=== PATIENT | male | born 1965 | race African-American/Black ===

== ENCOUNTER 2019-02-14 01:28 | Emergency (ER) | payer SELFPAY ==
[2019-02-14] MEDS ORDERED: Meclizine HCl 25 MG TAB ONE (02:56)
[2019-02-14] MEDS ORDERED: Enoxaparin Sodium 100 MG/ML SYRINGE ONE (02:56)
[2019-02-14 03:13] LABS: #Eosinphils 0.3 thou/uL (0.0-0.7); #Lymphocytes 2.7 thou/uL (1.20-3.40); #Monocytes 0.7 thou/uL (0.11-0.59); %Basophils 0.3 % (0.0-1.0); %Eosinophils 3.8 % (0.0-10.0); %Lymphocytes 40.4 % (21.0-51.0); %Neutrophils 45.5 % (42.0-75.0); Mean Corpuscular HGB CONC 34.1 g/dL (32.0-36.0); Mean Corpuscular Hemoglobin 34.1 pg (27.0-31.0); Mean Corpuscular Volume 99.8 fL (78.0-98.0); Mean Platelet Volume 9.5 fL (7.4-10.4); Platelet Count 133 thou/uL (130-400); RBC Distribution Width 13.1 % (11.5-14.5); White Blood Cell (WBC) Count 6.6 thou/uL (4.8-10.8)
[2019-02-14 03:58] LABS: ALT (SGPT) 21 U/L (8-55); AST (SGOT) 22 U/L (5-34); Albumin 4.1 g/dL (3.5-5.0); Alkaline Phosphatase 81 U/L (40-150); Anion Gap 13 mmol/L (10-20); BUN (Urea Nitrogen) 15 mg/dL (8.4-25.7); Bilirubin, Total 0.3 mg/dL (0.2-1.2); Calc. Creatinine Clearance 0 mL/min (70-130); Calcium 9.5 mg/dL (7.8-10.44); Carbon Dioxide 22 mmol/L (22-29); Chloride 106 mmol/L (98-107); Estimated GFR-MDRD Greater than 90; Globulin 3.2 g/dL (2.4-3.5); Glucose 93 mg/dL (70-105); Potassium 4.2 mmol/L (3.5-5.1); Protein, Total 7.3 g/dL (6.0-8.3); Sodium 137 mmol/L (136-145)
--- NOTE | 2019-02-14 08:48 | CT ---
PRELIMINARY REPORT/[facility]/EMERGENCY AFTER HOURS PROCEDURE: EXAM: CT Head Without Contrast EXAM DATE/TIME: 02/14/2019 2:53 AM CLINICAL HISTORY: 54 years old, male; Patient HX: 54 y/o m presents to ED C/O intermittent dizziness that began approx 3 days ago. Denies speech changes, unilateral changes in strength or sensation, vision changes, gait changes TECHNIQUE: Imaging protocol: Computed tomography of the head without contrast. COMPARISON: No relevant prior studies available. FINDINGS: Brain: Unremarkable. No hemorrhage. No significant white matter disease. No edema. Ventricles: Unremarkable. Bones/joints: No acute fracture. Sinuses: Unremarkable. Mastoid air cells: Unremarkable. Soft tissues: Unremarkable. IMPRESSION: No evidence of acute intracranial abnormality. Thank you for allowing us to participate in the care of your patient. Dictated and Authenticated by: Laron Muse MD 02/14/2019 3:34 AM Central Time ([place] & [place]) FINAL REPORT CT BRAIN WITHOUT CONTRAST: COMPARISON: 11/09/2015 FINDINGS/IMPRESSION: I agree with the findings and impression given in the preliminary report per [facility] physician. No evidence of acute intracranial abnormality. POS: ANNA
--- NOTE | 2019-02-18 03:16 | EKG ---
Test Reason : Blood Pressure : / mmHG Vent. Rate : 052 BPM Atrial Rate : 052 BPM P-R Int : 132 ms QRS Dur : 094 ms QT Int : 416 ms P-R-T Axes : 053 015 012 degrees QTc Int : [address] elevation, consider early repolarization, pericarditis, or injury Abnormal ECG Confirmed by SARAH CAMPOS DO ([id number]), makeup editor OSWALDO MITCHELL ([id number]) on 02/18/2019 3:15:15 AM Referred By: Confirmed By:SARAH CAMPOS DO
== END 2019-02-14 04:35 | disposition home or self-care (01) ==
LOC: ERS 01:28
DX: R42 Dizziness and giddiness (principal); I10 Essential (primary) hypertension; F17.210 Nicotine dependence, cigarettes, uncomplicated; Z91.14 Patient's other noncompliance with medication regimen
CPT/HCPCS: 36415; 70450; 80053; 85025; 93005; J1650; J8597

== ENCOUNTER 2019-03-13 08:42 | Emergency (ER) | payer SELFPAY ==
--- NOTE | 2019-03-13 10:45 | RAD ---
EXAM: XR Lumbar Spine 2 Or 3 View PROVIDED CLINICAL HISTORY: Low back pain for 2 to 3 days COMPARISON: None FINDINGS: There are 5 nonrib-bearing lumbar-type vertebral bodies. Scattered osteophytes are seen in lower thor acic as well as involving the lower lumbar spine. The vertebral body heights are within normal limits. No fracture or subluxation is seen involving the lumbar spine. IMPRESSION: Degenerative changes in the lumbar spine without acute osseous abnormality seen.
[2019-03-13] MEDS ORDERED: Diazepam 5 MG TAB ONE (10:47)
[2019-03-13] MEDS ORDERED: Ketorolac Tromethamine 30 MG/ML VIAL ONE ×2 (10:47→10:50)
--- NOTE | 2019-03-13 10:48 | RAD ---
EXAM: XR Thoracic Spine 1 View PROVIDED CLINICAL HISTORY: Lower back pain for 2 to 3 days. COMPARISON: None FINDINGS: Lateral view was not obtained. There are osteophytes seen in the lower thoracic and upper lumbar spin e. No definite vertebral body height loss is seen. IMPRESSION: Limited exam as only a single AP projection is provided. There are degenerative changes in the lower thoracic spine.
[2019-03-13 10:55] LABS: Bilirubin Negative (Negative); Blood, Urine Negative (Negative); Clarity Clear (Clear); Glucose, Urine (Dipstick) Normal (Negative); Leukocyte Negative Leu/uL (Negative); Nitrite Negative (Negative); Protein, Urine (Dipstick) Negative (Neg-Trace); Urobilinogen Normal mg/dL (Less than 2)
== END 2019-03-13 12:07 | disposition home or self-care (01) ==
LOC: ERS 08:42
DX: M54.5 Low back pain (principal); I10 Essential (primary) hypertension; F17.210 Nicotine dependence, cigarettes, uncomplicated
CPT/HCPCS: 72020; 72100; 81003; 96372; J1885

== ENCOUNTER 2020-06-27 06:02 | Emergency (ER) | payer SELFPAY ==
--- NOTE | 2020-06-27 08:03 | RAD ---
Exam: Chest one view HISTORY:Cough. Comparison: 05/21/2020 FINDINGS: Cardiac silhouette: Normal Aorta: Unremarkable Pulmonary vessels: Normal Costophrenic angles: Clear LUNGS: No masses or consolidation. Pneumothorax: None Osseous abnormalities: None IMPRESSION: No acute cardiopulmonary process.
[2020-06-27 14:12] LABS: SARS-CoV-2 PCR by NAA Not Detected (NotDetected)
--- NOTE | 2020-07-19 22:15 | EKG ---
Test Reason : Blood Pressure : / mmHG Vent. Rate : 063 BPM Atrial Rate : 063 BPM P-R Int : 126 ms QRS Dur : 084 ms QT Int : 370 ms P-R-T Axes : 050 021 016 degrees QTc Int : 378 ms Normal sinus rhythm Septal infarct , age undetermined Abnormal ECG Confirmed by SARAH CAMPOS DO ([id number]), content editor ALISA RENDON ([id number]) on 07/19/2020 10:15:41 PM Referred By: Confirmed By:SARAH CAMPOS DO
== END 2020-06-27 08:38 | disposition home or self-care (01) ==
LOC: ERS 06:02
DX: R05 Cough (principal); F17.210 Nicotine dependence, cigarettes, uncomplicated; Z20.822 Contact with and (suspected) exposure to COVID-19
CPT/HCPCS: 71045; 87635; 93005; U0003; U0005